=== PATIENT | female | born 1955 | race African-American/Black ===

== ENCOUNTER 2018-10-10 23:07 | Emergency (ER) | payer SELFPAY ==
[~2018-10-10] VITALS: Ht 172.7 cm; Wt 63.5 kg
[2018-10-10 23:46] LABS: BASO # 0.1 x10^3/uL (0.0-0.2); BASO % 1 % (0-3); EOS # 0.3 x10^3/uL (0.0-0.7); EOS % 4 % (0-3); HEMATOCRIT 24.5 % (36.0-47.0); HEMOGLOBIN 8.2 g/dL (12.0-15.5); LYMPH # 2.3 x10^3/uL (1.0-4.8); LYMPH % 35 % (24-48); MEAN CORPUSCULAR HEMOGLOBIN 28 pg (25-35); MEAN CORPUSCULAR HGB CONC 34 g/dL (31-37); MEAN CORPUSCULAR VOLUME 84 fL (79-100); MONO # 0.5 x10^3/uL (0.0-1.1); MONO % 7 % (0-9); NEUT # 3.5 x10^3uL (1.8-7.7); NEUT % 53 % (31-73); PLATELET COUNT 487 x10^3/uL (140-400); RED CELL DISTRIBUTION WIDTH 18.4 % (11.5-14.5); WHITE BLOOD COUNT 6.6 x10^3/uL (4.0-11.0)
[2018-10-10 23:55] LABS: CALCIUM 8.9 mg/dL (8.5-10.1); CREATININE 0.6 mg/dL (0.6-1.0); GFR 101.6; POTASSIUM 3.6 mmol/L (3.5-5.1)
[2018-10-10] MEDS ORDERED: CEPHALEXIN 250 MG CAPSULE. PO ONE (23:55)
[2018-10-11 00:01] LABS: ALBUMIN 3.3 g/dL (3.4-5.0); ALBUMIN/GLOBULIN RATIO 0.7 (1.0-1.7); TOTAL BILIRUBIN 0.1 mg/dL (0.2-1.0); TOTAL PROTEIN 8.1 g/dL (6.4-8.2)
[2018-10-11 00:54] VITALS: BP 180/82
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
--- NOTE | 2018-10-11 01:30 | RAD ---
Chest AP portable at 2344: Reason for examination: Chest pain. The heart size is normal. Mediastinum is unremarkable. Lung pack are clear. No acute bony abnormalities are seen. Medullary moira is seen in the left humerus. IMPRESSION: No acute cardiopulmonary disease. Electronically signed by: Anastasia Gauthier MD (10/11/2018 1:26 AM) [facility]
--- NOTE | 2018-10-11 15:29 | EKG ---
[facility] [address] [place] [id number] Test Date: 2018-10-10 Test Time: 23:12:57 Pat Name: IVANIA SHAFFER Department: Room: Gender: F Care Mgr: : 1955 Requested By: BECKA AMARO Order Number: [id number] Reading MD: Navneet Cruz Measurements Intervals [place] Rate: 77 P: 59 MS: 190 QRS: 29 QRSD: 92 T: 65 QT: 408 QTc: 464 Interpretive Statements SINUS RHYTHM AMPLITUDE CRITERIA FOR LVH POSSIBLY ABNORMAL ECG RI6.01 No previous ECG available for comparison Electronically Signed On 10-13-2018 15:10:42 [employer] by Navneet Cruz
== END 2018-10-11 01:35 | disposition home or self-care (01) ==
LOC: ER 10-11 00:16
DX: F10.20 Alcohol dependence, uncomplicated (principal); Y90.3 Blood alcohol level of 60-79 mg/100 ml; R07.89 Other chest pain; I10 Essential (primary) hypertension; Z90.89 Acquired absence of other organs; F43.10 Post-traumatic stress disorder, unspecified; Z88.5 Allergy status to narcotic agent
CPT/HCPCS: 36415; 71045; 80053; 84484; 85025; 93005; 99284; G0480